=== PATIENT | female | born 1940 ===

== ENCOUNTER 2018-09-24 13:54 | Emergency (ER) | payer OTHER ==
[~2018-09-24] VITALS: Ht 160 cm; Wt 69.9 kg
[2018-09-24] MEDS ORDERED: XARELTO10 MG (15:00)
== END 2018-09-24 17:25 | disposition home or self-care (01) ==
LOC: ER 13:54
DX: G89.11 Acute pain due to trauma (principal); M79.661 Pain in right lower leg; R60.0 Localized edema; I82.491 Acute embolism and thrombosis of other specified deep vein of right lower extremity